=== PATIENT | female | born 1955 | race Caucasian/White ===

== ENCOUNTER 2023-10-20 14:41 | Emergency (ER) | payer OTHER ==
[2023-10-20] MEDS ORDERED: LIDOCAINE 1%/EPI 1:100000 (20 ML MULTI DOSE VIAL) INF ONE (14:44)
[2023-10-20] MEDS ORDERED: LIDO 2%/EPI 1:200000 PRESRVFRE (20 ML SDVIAL) ONE (15:06)
[2023-10-20 15:11] VITALS: BP 151/94; PULSE 64; RESP 20; TEMP 97.7; BMI 32.9
[2023-10-20] MEDS ORDERED: DIPHTH,PERTUSS(ACELL),TET 0.5 ML DISP.SYRIN IM ONE (15:58)
[2023-10-20] MEDS: DIPHTH,PERTUSS(ACELL),TET 0.5 ML DISP.SYRIN IM ONE (16:02)
== END 2023-10-20 16:12 | disposition home or self-care (01) ==
LOC: FER 14:41
PROC: 0HQ1XZZ Repair Face Skin, External Approach (ICD-10-PCS; principal; 2023-10-20)
PROC: 3E0234Z Introduction of Serum, Toxoid and Vaccine into Muscle, Percutaneous Approach (ICD-10-PCS; 2023-10-20)
DX: S01.81XA Laceration without foreign body of other part of head, initial encounter (principal); W01.198A Fall on same level from slipping, tripping and stumbling with subsequent striking against other object, initial encounter; Y99.0 Civilian activity done for income or pay
CPT/HCPCS: 70450-TC; 72125-TC; 90715; 99284-25

== ENCOUNTER 2023-10-24 12:19 | Emergency (ER) | payer OTHER ==
[2023-10-24 13:18] VITALS: BP 156/85; PULSE 86; RESP 15; TEMP 97.8; BMI 32.9
== END 2023-10-24 13:05 | disposition home or self-care (01) ==
LOC: FER 12:19
DX: Z48.02 Encounter for removal of sutures (principal)
CPT/HCPCS: 99281-25